=== PATIENT | female | born 1980 ===

== ENCOUNTER 2020-01-03 19:00 | Emergency (ER) | payer OTHER ==
[~2020-01-03] VITALS: Ht 160 cm; Wt 68.9 kg
== END 2020-01-03 22:30 | disposition home or self-care (01) ==
LOC: ER 19:00
DX: S50.02XA Contusion of left elbow, initial encounter (principal); S70.02XA Contusion of left hip, initial encounter; S30.0XXA Contusion of lower back and pelvis, initial encounter; M12.522 Traumatic arthropathy, left elbow; M48.36 Traumatic spondylopathy, lumbar region; W10.8XXA Fall (on) (from) other stairs and steps, initial encounter; Y93.89 Activity, other specified; Y92.018 Other place in single-family (private) house as the place of occurrence of the external cause; Y99.8 Other external cause status

== ENCOUNTER 2020-01-08 20:35 | Emergency (ER) | payer OTHER ==
[~2020-01-08] VITALS: Ht 160 cm; Wt 68.0 kg
[2020-01-08] MEDS ORDERED: MOTRIN IB200 M1 (21:01)
[2020-01-08] MEDS ORDERED: NORFLEX (21:01)
== END 2020-01-08 22:43 | disposition home or self-care (01) ==
LOC: ER 20:35
DX: M62.830 Muscle spasm of back (principal); S30.0XXD Contusion of lower back and pelvis, subsequent encounter; W10.8XXD Fall (on) (from) other stairs and steps, subsequent encounter

== ENCOUNTER 2020-11-22 11:05 | Outpatient (CLI) | payer OTHER ==
[~2020-11-22 11:05] MED LIST: MOTRIN IB200 M1; NORFLEX
== END 2020-11-22 12:13 | disposition home or self-care (01) ==
LOC: PRENATAL 11:05
PROVIDERS: ATTEND Obstetrics & Gynecology Maternal & Fetal Medicine
DX: O35.0XX1 Maternal care for (suspected) central nervous system malformation in fetus, fetus 1 (principal); O35.3XX1 Maternal care for (suspected) damage to fetus from viral disease in mother, fetus 1; O98.512 Other viral diseases complicating pregnancy, second trimester; O28.1 Abnormal biochemical finding on antenatal screening of mother; O09.512 Supervision of elderly primigravida, second trimester; Z36.89 Encounter for other specified antenatal screening; Z3A.21 21 weeks gestation of pregnancy

== ENCOUNTER 2021-02-25 17:16 | Emergency (ER) | payer OTHER ==
[~2021-02-25] VITALS: Ht 160 cm; Wt 68.0 kg
== END 2021-02-25 20:54 | disposition home or self-care (01) ==
LOC: ER 17:16
DX: R04.0 Epistaxis (principal)

== ENCOUNTER 2021-03-06 11:36 | Outpatient (CLI) | payer OTHER | END 2021-03-06 12:05 | disposition home or self-care (01) | LOC: PRENATAL 11:36 | PROVIDERS: ATTEND Obstetrics & Gynecology Maternal & Fetal Medicine | DX: O36.8131 Decreased fetal movements, third trimester, fetus 1 (principal); O35.0XX1 Maternal care for (suspected) central nervous system malformation in fetus, fetus 1; O26.843 Uterine size-date discrepancy, third trimester; O24.410 Gestational diabetes mellitus in pregnancy, diet controlled; Z36.89 Encounter for other specified antenatal screening; Z3A.35 35 weeks gestation of pregnancy ==

== ENCOUNTER 2021-03-22 11:15 | Inpatient (IN) | payer OTHER ==
[~2021-03-22] VITALS: Ht 160 cm; Wt 3.2 kg
[2021-03-27] MEDS ORDERED: PRENATAL CAPLE1 EAC1 PO (12:01)
[2021-03-27] MEDS ORDERED: FOLIC ACID0.8 M1 PO (12:02)
== END 2021-03-29 16:29 | disposition home or self-care (01) | DRG 788 ==
LOC: OB/GYN 03-27 07:00 → O/R 03-27 10:54 → OB/GYN 03-27 11:15
PROVIDERS: ADMIT Obstetrics & Gynecology; ATTEND Obstetrics & Gynecology
PROC: 4A1HXCZ Monitoring of Products of Conception, Cardiac Rate, External Approach (ICD-10-PCS; 2021-03-27)
PROC: 10D00Z1 Extraction of Products of Conception, Low, Open Approach (ICD-10-PCS; principal; 2021-03-27 07:00)
DX: O34.211 Maternal care for low transverse scar from previous cesarean delivery (principal); Z20.822 Contact with and (suspected) exposure to COVID-19; Z3A.39 39 weeks gestation of pregnancy; Z37.0 Single live birth